=== PATIENT | male | born 1990 | race African-American/Black ===

== ENCOUNTER 2019-05-22 13:09 | Emergency (ER) | payer SELFPAY ==
[~2019-05-22] VITALS: Ht 167.6 cm; Wt 61.2 kg
--- OUTSIDE RECORDS SUMMARY | 2019-05-22 13:12 | XMS REPORT ---
Author Author [facility] Address Unknown Phone Unavailable Care Team Providers Care Software Developer Manager Name Role Phone KACI GAN Unavailable Unavailable Problems This patient has no known problems. Allergies, Adverse Reactions, Alerts This patient has no known allergies or adverse reactions. Medications This patient has no known medications. Results Test Description Test Time Test Comments Text Results Atomic Results Result Comments URINE CULTURE 2018-11-28 11:34:00 CULTURE (BEAKER) (test nezf=6764) <10,000 col/mL skin rinku URINALYSIS W/ [id number] 00:11:00* Test Item Value Reference Range Comments COLOR (BEAKER) (test yhka=548) Yellow CLARITY (BEAKER) (test hnlj=841) Clear SPECIFIC GRAVITY UA (BEAKER) (test tlmg=939) 1.020 1.001-1.035 PH UA (BEAKER) (test rlea=575) 7.0 5.0-8.0 PROTEIN UA (BEAKER) (test xyvu=322) Negative Negative GLUCOSE UA (BEAKER) (test pfqo=795) Negative Negative KETONES UA (BEAKER) (test ymfo=820) 15 mg/dL Negative BILIRUBIN UA (BEAKER) (test eszb=797) Negative Negative BLOOD UA (BEAKER) (test msyp=864) Negative Negative NITRITE UA (BEAKER) (test lrjr=108) Negative Negative LEUKOCYTE ESTERASE UA (BEAKER) (test txmt=776) Small Negative UROBILINOGEN UA (BEAKER) (test eiqp=832) 4.0 mg/dL 0.2-1.0 BACTERIA (BEAKER) (test uhnc=062) Rare RBC UA-MANUAL (BEAKER) (test rjtd=9476) <5 /HPF WBC UA-MANUAL (BEAKER) (test vqye=2549) 10-20 /HPF SQUAMOUS EPITHELIAL MANUAL (BEAKER) (test admn=7572) <5 /HPF SOURCE(BEAKER) (test trxy=6112) RAD, CHEST, 2 [id number] 01:23:00Reason for exam:->bad coughShould this be performed at the bedside?->NoFINAL REPORT Exam: 2 VIEW CHEST INDICATION: COUGH IMPRESSION: No comparison studies are available. On the frontal projection, a small vague nodular approximately 2 cm opacity is noted in the right infrahilar region. The finding may reflect superimposed vascular structures. However, a parenchymal lung process, adenopathy or an infrahilar mass cannot be excluded. The heart size is normal. No evidence of pulmonary edema, pleural effusion, pneumothorax or acute osseous abnormality. Chest CT could be performed for further evaluation. Alternatively, consider imaging surveillance with serial chest radiographs to document stability and/or resolution. Signed: Edilma Dunlap [facility] [place] Verified Date/Time: 04/06/2017 01:23:07 Reading Location: [address] Reading Room
== END 2019-05-22 13:44 | disposition home or self-care (01) ==
LOC: FSED 13:09
DX: L73.9 Follicular disorder, unspecified (principal)
CPT/HCPCS: 99282

== ENCOUNTER 2020-07-01 15:17 | Emergency (ER) | payer SELFPAY ==
[~2020-07-01] VITALS: Ht 167.6 cm; Wt 63.5 kg
[2020-07-01] MEDS ORDERED: CEFDINIR300 MG PO (15:32)
[2020-07-01] MEDS ORDERED: DOXYCYCLINE HY100 MG PO (15:32)
== END 2020-07-01 15:53 | disposition home or self-care (01) ==
LOC: FSED 15:39
DX: A54.9 Gonococcal infection, unspecified (principal); F17.210 Nicotine dependence, cigarettes, uncomplicated
CPT/HCPCS: 81003; 99283